=== PATIENT | female | born 1930 | race Caucasian/White ===

== ENCOUNTER 2017-03-22 11:24 | Inpatient (IN) ==
[2017-03-22] MEDS ORDERED: SODIUM CHLORIDE 0.9% 1,000 ML IV SCH (14:30)
[2017-03-22] MEDS ORDERED: MORPHINE 2 MG/1 ML SYRINGE IV PRN (14:35)
[2017-03-22] MEDS ORDERED: diphenhydrAMINE CAP 25 MG CAPSULE PO PRN (14:35)
[2017-03-22] MEDS ORDERED: DOCUSATE SODIUM 100 MG CAPSULE PO PRN (14:35)
[2017-03-22] MEDS ORDERED: guaiFENesin/DM ER 600-30 MG TABLET PO PRN (14:35)
[2017-03-22] MEDS ORDERED: ONDANSETRON 4 MG/2 ML VIAL IV PRN (14:35)
[2017-03-22] MEDS ORDERED: ACETAMINOPHEN 325 MG TABLET PO PRN ×2 (14:35)
[2017-03-22] MEDS ORDERED: ALBUTEROL/IPRATROPIUM 3 ML NEB RESP TX SCH (15:00)
[2017-03-22 17:28] LABS: Apearance,Urine CLEAR (Clear); Bilirubin,Urine Negative (Negative); Blood, Urine Small mg/dL (Negative); Glucose,Urine (UA) Negative (Negative); Ketones,Urine 80 mg/dL (Negative); Mucus,Urine Occasional /LPF (Occasional); Nitrite,Urine Negative (Negative); Protein,Urine Negative; RBC,Urine 3 /HPF (0-4); Squamous Epithelial Cell,Urine Occasional /HPF (0-10); Urine Color Yellow (Yellow); Urine Specific Gravity 1.017 (1.001-1.035); Urine Urobilinogen < 2.0 EU/DL (0.2-1.0); WBC,Urine 1 /HPF (0-6)
[2017-03-22] MEDS: SODIUM CHLORIDE 0.9% 1,000 ML IV SCH ×2 (17:53→22:31)
[2017-03-22] MEDS: MONTELUKAST 10 MG TABLET PO SCH (17:55)
[2017-03-22] MEDS: predniSONE 10 MG TABLET PO SCH (17:55)
[2017-03-22 17:56] LABS: CKMB % 0.8 %; Troponin I Only 0.298 NG/ML (0.00-0.045)
[2017-03-22] MEDS: THEOPHYLLINE ER (24 HR) 400 MG TABLET PO SCH ×2 (17:56→21:26)
[2017-03-22] MEDS: PANTOPRAZOLE 40 MG TABLET PO SCH (17:56)
[2017-03-22] MEDS: prednisoLONE ACETATE 1% OPH SUSP 5 ML BOTTLE RIGHT EYE SCH ×2 (17:58→21:23)
[2017-03-22] MEDS: ALBUTEROL 0.4 MG/ML 30 ML/BOTTLE PO SCH ×2 (17:58→21:23)
[2017-03-22] MEDS: ALBUTEROL/IPRATROPIUM 3 ML NEB RESP TX SCH (19:45)
[2017-03-22] MEDS: ENOXAPARIN 40 MG/0.4 ML SYRINGE SUBCUT SCH (21:23)
[2017-03-22 21:33] LABS: CKMB % 0.5 %
[2017-03-22 21:40] LABS: Troponin I Only 0.222 NG/ML (0.00-0.045)
[2017-03-23 05:35] LABS: Basophils % 0.3 % (0.0-0.8); Eosinophils % 0.1 % (0.00-10.9); Hematocrit 34.5 VOL% (35.7-47.0); Hemoglobin 12.2 GM/DL (12.0-16.0); Immature Granulocytes % 0.6 %; Immature Granulocytes Absolute 0.04 #; Lymphocytes # 0.9 10*3/uL (1.4-4.0); Lymphocytes % 12.3 % (21.3-54.2); Mean Corpuscular HGB Conc 35.4 GM/DL (32-36); Mean Corpuscular Hemoglobin 33 PG (27-34); Mean Platelet Volume 11.3 FL (9.6-12.0); Monocytes # 0.6 10*3/uL (0.11-0.8); Monocytes % 8.7 % (1.7-12.7); Neutrophils # 5.6 10*3/uL (1.4-7.4); Platelet Count 143 T/CUMM (130-400); Red Blood Count 3.67 MC/CUMM (3.8-5.5); Red Cell Distribution Width 12.3 % (9.3-17.3); White Blood Count 7.2 T/CUMM (4-12)
[2017-03-23 06:04] LABS: Bilirubin,Total 1.3 MG/DL (0.2-1.0); Calcium 8.4 MG/DL (8.5-10.1); Magnesium 2.1 MG/DL (1.8-2.4); Osmolality,Calculated 282.1 MOS/KG (273-304); Potassium 3.7 MMOL/L (3.5-5.1); Total Protein 5.2 G/DL (6.4-8.3)
[2017-03-23 06:07] LABS: CKMB % 0.5 %; Troponin I Only 0.123 NG/ML (0.00-0.045)
[2017-03-23] MEDS: LEVOTHYROXINE 100 MCG TABLET PO SCH (06:27)
[2017-03-23] MEDS: SODIUM CHLORIDE 0.9% 1,000 ML IV SCH ×2 (06:29→15:16)
[2017-03-23] MEDS: ALBUTEROL/IPRATROPIUM 3 ML NEB RESP TX SCH ×4 (07:32→19:02)
[2017-03-23] MEDS: THEOPHYLLINE ER (24 HR) 400 MG TABLET PO SCH ×2 (08:24→20:34)
[2017-03-23] MEDS: PANTOPRAZOLE 40 MG TABLET PO SCH (08:24)
[2017-03-23] MEDS: ALBUTEROL 0.4 MG/ML 30 ML/BOTTLE PO SCH ×3 (08:24→20:35)
[2017-03-23] MEDS: MONTELUKAST 10 MG TABLET PO SCH (08:24)
[2017-03-23] MEDS: prednisoLONE ACETATE 1% OPH SUSP 5 ML BOTTLE RIGHT EYE SCH ×4 (08:24→20:34)
[2017-03-23] MEDS: predniSONE 10 MG TABLET PO SCH (08:24)
[2017-03-23 09:50] LABS: CKMB % 0.6 %
[2017-03-23 09:55] LABS: Troponin I Only 0.135 NG/ML (0.00-0.045)
[2017-03-23 11:49] LABS: Free T4 (Free Thyroxine) 1.33 NG/DL (0.76-1.46); Thyroid Stimulating Hormone 0.146 uIU/ml (0.358-3.74)
[2017-03-23] MEDS: ASPIRIN EC 81 MG TABLET PO SCH (12:39)
[2017-03-23] MEDS: ENOXAPARIN 40 MG/0.4 ML SYRINGE SUBCUT SCH (20:34)
[2017-03-24] MEDS: SODIUM CHLORIDE 0.9% 1,000 ML IV SCH ×2 (01:13→12:58)
[2017-03-24] MEDS: LEVOTHYROXINE 100 MCG TABLET PO SCH (06:00)
[2017-03-24] MEDS: ALBUTEROL/IPRATROPIUM 3 ML NEB RESP TX SCH ×4 (06:15→19:35)
[2017-03-24] MEDS: THEOPHYLLINE ER (24 HR) 400 MG TABLET PO SCH ×2 (08:55→20:51)
[2017-03-24] MEDS: PANTOPRAZOLE 40 MG TABLET PO SCH (08:56)
[2017-03-24] MEDS: MONTELUKAST 10 MG TABLET PO SCH (08:56)
[2017-03-24] MEDS: ASPIRIN EC 81 MG TABLET PO SCH (08:56)
[2017-03-24] MEDS: prednisoLONE ACETATE 1% OPH SUSP 5 ML BOTTLE RIGHT EYE SCH ×4 (08:56→20:52)
[2017-03-24] MEDS: predniSONE 10 MG TABLET PO SCH (08:56)
[2017-03-24] MEDS: ALBUTEROL 0.4 MG/ML 30 ML/BOTTLE PO SCH ×3 (08:57→20:51)
[2017-03-24 13:05] LABS: Apearance,Urine CLEAR (Clear); Bilirubin,Urine Negative (Negative); Blood, Urine Large mg/dL (Negative); Glucose,Urine (UA) Negative (Negative); Ketones,Urine 80 mg/dL (Negative); Mucus,Urine Occasional /LPF (Occasional); Nitrite,Urine Negative (Negative); Protein,Urine Negative; RBC,Urine 12 /HPF (0-4); Urine Color Yellow (Yellow); Urine Specific Gravity 1.016 (1.001-1.035); Urine Urobilinogen < 2.0 EU/DL (0.2-1.0); WBC,Urine 2 /HPF (0-6)
[2017-03-24] MEDS: ALBUTEROL/IPRATROPIUM 3 ML NEB RESP TX PRN (15:46)
[2017-03-24] MEDS: ENOXAPARIN 40 MG/0.4 ML SYRINGE SUBCUT SCH (20:51)
[2017-03-25] MEDS: ALBUTEROL/IPRATROPIUM 3 ML NEB RESP TX PRN (03:00)
[2017-03-25] MEDS ORDERED: LEVOTHYROXINE 88 MCG TABLET PO SCH (06:30)
[2017-03-25] MEDS: ALBUTEROL/IPRATROPIUM 3 ML NEB RESP TX SCH ×2 (08:02→11:20)
[2017-03-25] MEDS: MONTELUKAST 10 MG TABLET PO SCH (10:23)
[2017-03-25] MEDS: THEOPHYLLINE ER (24 HR) 400 MG TABLET PO SCH (10:23)
[2017-03-25] MEDS: PANTOPRAZOLE 40 MG TABLET PO SCH (10:23)
[2017-03-25] MEDS: prednisoLONE ACETATE 1% OPH SUSP 5 ML BOTTLE RIGHT EYE SCH ×2 (10:24→13:01)
[2017-03-25] MEDS: ASPIRIN EC 81 MG TABLET PO SCH (10:24)
[2017-03-25] MEDS: predniSONE 10 MG TABLET PO SCH (10:24)
[2017-03-25] MEDS: ALBUTEROL 0.4 MG/ML 30 ML/BOTTLE PO SCH (10:25)
[2017-03-25 12:04] VITALS: BP 134/71
== END 2017-03-25 13:02 | DRG 565 ==
LOC: N.CVR 12:50 → N.ICU 16:47 → N.TELEN 03-23 21:13
PROVIDERS: ADMIT Internal Medicine; ATTEND Internal Medicine